=== PATIENT | male | born 1970 | race Caucasian/White ===

== ENCOUNTER 2018-01-23 | Emergency (ER) | payer OTHER | END 2018-01-23 09:18 | disposition home or self-care (01) ==

== ENCOUNTER → 2018-09-12 | Outpatient (CLI) | payer OTHER ==
[~2018-09-12] MED LIST: GADOBUTROL 10 ML VIAL IVP ONE
== END ==
LOC: FIMAGING 13:35
PROVIDERS: ATTEND Family Medicine
DX: D18.02 Hemangioma of intracranial structures (principal)
CPT/HCPCS: A9585